=== PATIENT | female | born 2000 | race Caucasian/White ===

== ENCOUNTER → 2021-11-21 | Outpatient (CLI) | payer BC, OTHER ==
[~2021-11-21] MED LIST: DEPO-PROVE150 MG/11 IM; IBUPROFEN600 MG PO; NORCO 5-325 TA1 EACH PO; PREDNISONE 50 M50 MG PO; RISPERDAL0.5 MG PO; ZOFRAN4 MG PO
== END ==
LOC: MAMO 13:30
DX: N63.10 Unspecified lump in the right breast, unspecified quadrant (principal)
CPT/HCPCS: 76641-RT

== ENCOUNTER 2022-02-15 09:45 | Emergency (ER) | payer BC, OTHER ==
[2022-02-15 10:49] LABS: RED BLOOD COUNT 4.44 M/UL (4.00-5.10); WHITE BLOOD COUNT 5.8 K/UL (4.5-11.0)
[2022-02-15 11:09] LABS: BUN/CREATININE RATIO 12 (0-10)
== END 2022-02-15 11:46 | disposition home or self-care (01) ==
LOC: ER1 09:45
PROVIDERS: Physician Assistant
DX: R07.89 Other chest pain (principal); Z88.8 Allergy status to other drugs, medicaments and biological substances
CPT/HCPCS: 71045; 80053; 82550; 82553; 84484; 85025; 93005; 99285